=== PATIENT | female | born 1970 | race Caucasian/White ===

== ENCOUNTER 2024-06-23 14:17 | Emergency (ER) | payer BC, SELFPAY ==
--- NOTE | ~2024-06-23 | CT_ITS ---
EXAMINATION: CT ANGIOGRAM HEAD AND NECK CLINICAL INFORMATION: Right-sided weakness. 54-year-old female. COMPARISON: Noncontrast head CT performed concurrently. No prior CT angiogram. TECHNIQUE: CT angiogram head and neck with intravenous bolus administration 70 mL of Omnipaque 350. Helical imaging was performed in the axial plane from the aortic arch to the skull vertex. The data was processed at the arrt technologist's workstation for generation of MIP sequences. Angled MIPs and volume rendered reformatted images were also generated at an offline 3D workstation. Stenoses are assessed in accordance with NASCET criteria unless otherwise indicated. This CT examination was performed using dose optimization techniques as appropriate, variously including the following: *Automated exposure control *Adjustment of mA and/or kV according to patient size (this includes techniques or standardized protocols for targeted exams where dose is matched to indication/reason for exam; i.e. extremities or head) *Use of iterative reconstruction technique FINDINGS: NECK CTA: -AORTIC ARCH: Normal in caliber. Mild atheromatous calcification. Three-vessel branching pattern. -GREAT VESSEL ORIGINS: Widely patent. No stenosis. -RIGHT COMMON CAROTID ARTERY: Normal in course and caliber to the level of the bifurcation. -CERVICAL RIGHT INTERNAL CAROTID ARTERY: Normal opacification without focal stenosis or occlusion. -LEFT COMMON CAROTID ARTERY: Normal in course and caliber to the level of the bifurcation. -CERVICAL LEFT INTERNAL CAROTID ARTERY: Normal opacification without focal stenosis or occlusion. -CERVICAL RIGHT VERTEBRAL ARTERY: Codominant. Normal in course and caliber into the skull base. -CERVICAL LEFT VERTEBRAL ARTERY: Codominant. Normal in course and caliber into the skull base. OTHER, SOFT TISSUES: -No lymphadenopathy or mass. No abnormal fluid collection or soft tissue swelling. -Normal thyroid. -Imaged superior mediastinal structures normal. -Imaged lung apices demonstrate mosaic attenuation, likely hypoventilatory changes from expiration. No additional abnormality. CTA OF THE BRAIN: -INTRACRANIAL INTERNAL CAROTID ARTERIES: No focal stenosis or occlusion. -RIGHT ANTERIOR CEREBRAL ARTERY: Normal A1 segment.. Normal arborization of the distal segments. -LEFT ANTERIOR CEREBRAL ARTERY: Normal A1 segment.. Normal arborization of the distal segments. -ANTERIOR COMMUNICATING ARTERY: Normal. -RIGHT MIDDLE CEREBRAL ARTERY: Normal M1 segment of the MCA without focal stenosis or occlusion. Normal bifurcation. Normal arborization of the distal segments. -LEFT MIDDLE CEREBRAL ARTERY: Normal M1 segment of the MCA without focal stenosis or occlusion. Normal bifurcation. Normal arborization of the distal segments. -RIGHT VERTEBRAL ARTERY V4: Normal in course and caliber. -LEFT VERTEBRAL ARTERY V4: Normal in course and caliber. -BASILAR ARTERY: Normal without focal stenosis or occlusion. Normal appearance of the proximal superior cerebellar arteries. Normal basilar tip. -RIGHT POSTERIOR CEREBRAL ARTERY: Normal P1 segment. Normal opacification of the distal MECHANICAL ENGINEERING PROFESSOR segments. -LEFT POSTERIOR CEREBRAL ARTERY: Normal P1 segment. Normal opacification of the distal MECHANICAL ENGINEERING PROFESSOR segments. -POSTERIOR COMMUNICATING ARTERIES: Normal opacification of the superior sagittal, straight, transverse, and sigmoid sinuses. No venous thrombosis. No space-occupying hemorrhage or definite evolving infarct. CT/CT angio head neck STROKE IMPRESSION: CTA NECK: 1. No evidence of vascular stenosis, occlusion, dissection, or aneurysm. 2. Normal-appearing soft tissues. 3. Mosaic attenuation of the imaged lung apices, likely secondary to hypoventilatory/expiratory changes. CTA HEAD: 1. No evidence of major arterial vascular stenosis, occlusion, dissection, or aneurysm. 2. No regional oligemia identified. 3. Major cortical and dural venous sinuses are patent. 4. No evolving ischemic infarct or space-occupying hemorrhage identified. Electronically signed by: Otilio Cee MD 06/23/2024 02:55 PM EDT
--- NOTE | ~2024-06-23 | CT_ITS ---
EXAMINATION: CT HEAD WITHOUT CONTRAST (STROKE PROTOCOL) CLINICAL INFORMATION: Stroke protocol. Right-sided weakness. COMPARISON: None available. TECHNIQUE: Contiguous axial imaging was performed from the skull base to vertex without intravenous administration of contrast. This CT examination was performed using dose optimization techniques as appropriate, variously including the following: *Automated exposure control *Adjustment of mA and/or kV according to patient size (this includes techniques or standardized protocols for targeted exams where dose is matched to indication/reason for exam; i.e. extremities or head) *Use of iterative reconstruction technique FINDINGS: There is no evidence of intracranial hemorrhage or extra-axial fluid collection. There is no mass effect, or edema. No CT evidence of acute territorial infarct. Ventricles, sulci, and cisterns are normal in size and configuration for patient age. No hydrocephalus. No midline shift. Negative hyperdense MCA sign. Negative insular ribbon sign. No white matter abnormalities. Normal pituitary. Globes and orbital contents image normally. No extracranial soft tissue abnormalities. Small air-fluid levels in the sphenoid sinuses. The paranasal sinuses, mastoid air cells, and tympanic cavities are otherwise normally aerated. No suspicious bony abnormalities. There are no acute fractures evident. CT/CT head for STROKE IMPRESSION: 1. No acute intracranial abnormality. No evidence of acute territorial infarct or intracranial hemorrhage. 2. Small air-fluid levels in the sphenoid sinuses. Electronically signed by: Otilio Cee MD 06/23/2024 02:35 PM EDT
--- NOTE | 2024-06-23 14:21 | ECG_ITS ---
Test Reason : stroke alert Blood Pressure : */* mmHG Vent. Rate : 66 BPM Atrial Rate : 66 BPM P-R Int : 190 ms QRS Dur : 106 ms QT Int : 438 ms P-R-T Axes : 5 -32 4 degrees QTcB Int : 459 ms Normal sinus rhythm Left axis deviation Cannot rule out Anterior infarct , age undetermined Abnormal ECG No previous ECGs available Referred By: Annabel Mcclain Electronically Signed By: Ha Booth
--- NOTE | 2024-06-23 14:25 | ED_ITS ---
<Statement entered by Shaun Alejandro MD - 06/24/24 10:49> I saw this patient with the physician medical assistant secretary. At the time that I saw the patient she looked quite well. She had presented with an episode of right-sided numbness that did not seem to be associated with any weakness or speech difficulty. She is not hypertensive. She is 54 years old. She has a history of hypertension and hyperlipidemia. She has never been a smoker. No diabetes. Her episode of right-sided numbness was associated with nausea and vomiting. I would not typically associated nausea and vomiting with a TIA. The patient also presented with a normal blood pressure. I would typically expect a resolving TIA to be associated with a higher blood pressure. Her CT angiogram does not show significant vascular disease. Her EKG shows a sinus rhythm. My overall suspicion for TIA in his the patient is quite low. Her ABCD2 score is low. It is possible this might has been a migraine phenomenon. I think it would be reasonable to discharge the patient on aspirin and have her follow up with her primary care doctor for an outpatient workup. The patient seems amenable HPI - Neuro Symptoms/Deficit General Chief Complaint: Stroke Stated Complaint: STROKE ALERT: R SIDED WEAKNESS/NUMBNESS Time Seen by Provider: 06/23/24 14:22 Source: patient and EMS Mode of arrival: EMS Limitations: no limitations History of Present Illness ED Provider: ANNABEL MCCLAIN PA-C HPI Narrative: 54 year old female with pmhx significant for HTN and HLD presents to the ED today for evaluation of acute onset right facial numbness and right UE paresthesias. Reports that at approximately 1330 today while typing at her computer, she began to experience numbness along the right side of her face/ tongue which then began to spread to her right upper extremity. She reports standing up from her desk and ambulating over to the kitchen to grab some water. She was able to hold the water pitcher in her right hand. She did not feel as though her right upper extremity was weak. She was able to tolerate water. She then ambulated to her supervisors office to inform her that something was wrong. Her home restoration service supervisor then called EMS. Patient states that for the most part, symptoms had resolved on EMS arrival. She was still experiencing tingling to right finger tips and foot. FAST exam per EMS was 0. Prior to ED transport, she began to feel nauseous and had two episodes of vomiting. On arrival, patient reports mild tingling sensation to right fingertips and right foot. Denies any numbness/weakness. She denies history of CVA or TIA. Denies VTE history. Not on anticoagulation. Denies hx DM. Denies headache, dizziness, vision changes, fever, chills, chest pain, shortness of breath, constipation, diarrhea, abdominal pain. No recent travel or long car ride. No recent illness. Related Data Previous Rx's ?Medication ?Instructions ?Recorded aspirin 81 mg capsule 81 mg PO DAILY 30 days #30 caps 06/23/24 Allergies Allergy/AdvReac Type Severity Reaction Status Date / Time No Known Allergies Allergy Verified 06/23/24 14:40 Review of Systems 2 Review of Systems: Yes all other systems are reviewed and are negative [facility] Past Medical History Attestation statement: The following information was validated with the patient. Source: old records reviewed and nursing notes reviewed Social History Social History Alcohol intake: current Alcohol intake frequency: holidays/special occasions only Smoked in Last 30 Days: No Use of substances other than those prescribed or required for medical reasons: No Advance Directives: No Advance Directives Information Provided: No Do you have a plan to hurt others: No Plan Patient : No Physical Exam 2 Vital Signs: Vital Signs: Last Vital Signs Temp 97.9 F 06/23/24 16:26 Pulse 64 06/23/24 16:26 Resp 11 L 06/23/24 16:26 BP 133/83 06/23/24 16:26 Pulse Ox 99 06/23/24 16:26 O2 Del Method Room Air 06/23/24 16:26 BMI result Body Mass Index 35.6 General: well appearing, in NAD Skin: Warm, dry, intact. No rashes or lesions. Head: Normocephalic, atraumatic. EENT: Hearing is intact b/l. Conjunctiva clear. PERRLA. EOM intact. Moist mucous membranes.? Neck: Supple without LAD Cardiac: Chest wall symmetric. RRR Lungs: Normal respiratory effort without accessory muscle use. CTA bilaterally Abdomen: Soft, non-tender, non-distended. No rebound tenderness or guarding. Positive BS x4. Back: No midline spinous or paraspinal tenderness. No step off deformity. Ext: Upper and lower extremities atraumatic, without tenderness, deformity, swelling or erythema Neuro: AOx3. Normal speech. No facial droop, slurred speech or pronator drift. NIH 0 at 1420 on arrival. Strength 5/5 intact throughout. Sensation intact to light touch throughout. ambulating w/ steady gait. normal finger to nose, heel to [place]. Course Course Course Narrative: 1420 - patient reporting transient episode of right upper extremity paresthesias/numbness which began around 1330 today. nearly complete resolution of symptoms on arrival. Her NIH stroke scale is 0. Likely TIA however stroke protocol ordered for further assessment. 1533 -- cbc without leukocytosis or left shift. no anemia, h&h stable. chemistry without acute electrolyte abnormality requiring intervention. no wilson. glucose 118. trop undetectable. EKG showing normal sinus rhythm, rate of 66 beats per minute, no acute ischemic changes or ST elevations. CT head without acute intracranial abnormality. No acute territorial infarct or intracranial hemorrhage. Small air-fluid levels noted to sphenoid sinuses. CT angio head/neck without major arterial vascular stenosis, occlusion, dissection or aneurysm. > ABCD2 score for TIA = 0. > patient is well appearing. vitals have remained stable. normotensive. > at this time, unclear if patient had some degree of migraine like symptoms vs TIA. her blood pressure has remained normal. vomiting less likely associated with TIA/CVA. > my attending dr. alejandro has reviewed case and evaluated patient at bedside. given unremarkable work up, low ABCD2 score, and limited risk factors, we feel it is reasonable to discharge patient home on baby aspirin with outpatient follow up. Used shared decision making with patient, she is agreeable with this. Aspirin 81 mg sent to pharmacy. Advised close follow up with her primary care provider. She states she will be calling their office tomorrow. Patient has remained stable throughout ED visit today. Discussed worrisome signs and symptoms and when to return to the ED. All questions answered at this time. Patient is agreeable with disposition and stable for discharge. Medications Administered Discontinued Medications Generic Name Dose Route Start Last Admin Trade Name Freq PRN Reason Stop Dose Admin Iohexol 100 ml 06/23/24 14:38 06/23/24 14:38 Iohexol 350 Mg/Ml 100 Ml Infus..Btl IV 06/23/24 14:39 70 ml ONCE ONE Administration Ondansetron HCl 4 mg 06/23/24 14:59 06/23/24 15:15 Ondansetron Hcl 4 Mg/2 Ml Vial IVPUSH 06/23/24 15:00 4 mg ONCE ONE Administration Medical Decision Making Medical Decision Making [facility] Narrative: 54 year old female with pmhx significant for HTN and HLD presents to the ED today for evaluation of acute onset right facial numbness and right UE paresthesias. vital signs stable. She is well-appearing and in no acute distress. Initially noted to vomit on arrival to ED. exam nonfocal. NIH 0. Cerebellum intact. Ambulating with steady gait. Differential diagnosis includes anemia, electrolyte abnormality, hypoglycemia, arrhythmia, migraine, dehydration, TIA/CVA. Unlikely intracranial hemorrhage. Plan for stroke protocol, re-evaluation. Differential Diagnosis Differential Diagnoses: The differential diagnosis associated with the presentation includes as above. Admission/Observation Consideration of admission/observation: Escalation of care including admission/observation considered Not indicated Lab Data [facility] Lab Attestation statement: I reviewed the patient's lab results. as above. 06/23/24 14:30 06/23/24 14:30 Labs: Lab Results 06/23/24 06/23/24 06/23/24 Range/Units 14:28 14:29 14:30 WBC 8.6 (4.8-10.8) X10*3/uL RBC 4.57 (4.20-5.50) X10*6/uL Hgb 13.6 (12.0-16.0) g/dl Hct 40.0 (37.0-47.0) % MCV 87.5 (80.0-98.0) fL MCH 29.8 (27.0-33.0) pg MCHC 34.0 (31.0-35.0) g/dl RDW 13.0 (11.0-16.0) % Plt Count 323 (160-400) X10*3/uL MPV 9.9 (9.4-12.3) fL Immature Gran % (Auto) 0.3 (0.0-0.4) % Neut % (Auto) 50.6 (45-73) % Lymph % (Auto) 37.8 (20-40) % Door % (Auto) 8.2 (2-11) % Eos % (Auto) 2.4 (0-4) % Baso % (Auto) 0.7 (0-2) % Lymph # (Auto) 3.3 (1.2-4.9) X10*3/uL Door # (Auto) 0.7 (0.1-1.2) X10*3/uL Eos # (Auto) 0.2 (0.0-0.4) X10*3/uL Baso # (Auto) 0.1 (0.0-0.2) X10*3/uL Abs Immat Gran (auto) 0.03 (0.00-0.03) X10*3/uL Absolute Neuts (auto) 4.4 (2.0-8.3) x10*3/uL Absolute Nucleated RBC 0.000 (0.0-0.012) X10*3/uL Nucleated RBC % (auto) 0.0 (0.0-0.2) /100WBC Hold Purple Top SEE NOTE PT 11.7 (10.9-12.4) SEC Whole Blood PT 12.2 (11.1-13.5) sec INR 1.0 (0.9-1.1) Whole Blood INR 1.0 (0.9-1.1) APTT 30.8 (26.0-36.8) SEC Sodium 138 (135-145) mmol/L Potassium 3.9 (3.3-5.1) mmol/L Chloride 107 (96-108) mmol/L Carbon Dioxide 19 L (22-29) mmol/L Anion Gap 16 (12-20) BUN 15 (9-16) mg/dL Creatinine 0.81 (0.5-1.4) mg/dL Estim Creat Clear Calc 103.6 Estimated GFR > 60 POC Glucose 122 H (60-115) mg/dL Random Glucose 118 H (60-115) mg/dL Calcium 9.0 (8.4-10.2) mg/dL Troponin I High Sens < 2.7 (<3.5-17.0) ng/L Triglycerides 66 (<150) mg/dL Cholesterol 160 (<200) mg/dL LDL Cholesterol, Calc 85 (<100) mg/dL HDL Cholesterol 62 (>40) mg/dL Independent Interpretation I performed an independent interpretation of an: EKG and CT Scan Interpretation: ct head/brain without bleed or mass cta head/neck without obvious vessel occlusion EKG showing normal sinus rhythm, rate of 66 beats per minute, no acute ischemic changes or ST elevations Radiology Impression Discussion of test interpretation with radiology: I have reviewed the radiologist's reading. Radiologist Impression: Procedure(s): CT angio head neck STROKE Accession Number(s): [id number] cc: Annabel Mcclain~ Report Number: [id number]: Total DLP = 734.00 mGy-cm EXAMINATION: CT ANGIOGRAM HEAD AND NECK CLINICAL INFORMATION: Right-sided weakness. 54-year-old female. COMPARISON: Noncontrast head CT performed concurrently. No prior CT angiogram. TECHNIQUE: CT angiogram head and neck with intravenous bolus administration 70 mL of Omnipaque 350. Helical imaging was performed in the axial plane from the aortic arch to the skull vertex. The data was processed at the cytogenetics technologist's workstation for generation of MIP sequences. Angled MIPs and volume rendered reformatted images were also generated at an offline 3D workstation. Stenoses are assessed in accordance with NASCET criteria unless otherwise indicated. This CT examination was performed using dose optimization techniques as appropriate, variously including the following: *Automated exposure control *Adjustment of mA and/or kV according to patient size (this includes techniques or standardized protocols for targeted exams where dose is matched to indication/reason for exam; i.e. extremities or head) *Use of iterative reconstruction technique FINDINGS: NECK CTA: -AORTIC ARCH: Normal in caliber. Mild atheromatous calcification. Three-vessel branching pattern. -GREAT VESSEL ORIGINS: Widely patent. No stenosis. -RIGHT COMMON CAROTID ARTERY: Normal in course and caliber to the level of the bifurcation. -CERVICAL RIGHT INTERNAL CAROTID ARTERY: Normal opacification without focal stenosis or occlusion. -LEFT COMMON CAROTID ARTERY: Normal in course and caliber to the level of the bifurcation. -CERVICAL LEFT INTERNAL CAROTID ARTERY: Normal opacification without focal stenosis or occlusion. -CERVICAL RIGHT VERTEBRAL ARTERY: Codominant. Normal in course and caliber into the skull base. -CERVICAL LEFT VERTEBRAL ARTERY: Codominant. Normal in course and caliber into the skull base. OTHER, SOFT TISSUES: -No lymphadenopathy or mass. No abnormal fluid collection or soft tissue swelling. -Normal thyroid. -Imaged superior mediastinal structures normal. -Imaged lung apices demonstrate mosaic attenuation, likely hypoventilatory changes from expiration. No additional abnormality. CTA OF THE BRAIN: -INTRACRANIAL INTERNAL CAROTID ARTERIES: No focal stenosis or occlusion. -RIGHT ANTERIOR CEREBRAL ARTERY: Normal A1 segment.. Normal arborization of the distal segments. -LEFT ANTERIOR CEREBRAL ARTERY: Normal A1 segment.. Normal arborization of the distal segments. -ANTERIOR COMMUNICATING ARTERY: Normal. -RIGHT MIDDLE CEREBRAL ARTERY: Normal M1 segment of the MCA without focal stenosis or occlusion. Normal bifurcation. Normal arborization of the distal segments. -LEFT MIDDLE CEREBRAL ARTERY: Normal M1 segment of the MCA without focal stenosis or occlusion. Normal bifurcation. Normal arborization of the distal segments. -RIGHT VERTEBRAL ARTERY V4: Normal in course and caliber. -LEFT VERTEBRAL ARTERY V4: Normal in course and caliber. -BASILAR ARTERY: Normal without focal stenosis or occlusion. Normal appearance of the proximal superior cerebellar arteries. Normal basilar tip. -RIGHT POSTERIOR CEREBRAL ARTERY: Normal P1 segment. Normal opacification of the distal EMBEDDED SYSTEMS SOFTWARE DEVELOPER segments. -LEFT POSTERIOR CEREBRAL ARTERY: Normal P1 segment. Normal opacification of the distal EMBEDDED SYSTEMS SOFTWARE DEVELOPER segments. -POSTERIOR COMMUNICATING ARTERIES: Normal opacification of the superior sagittal, straight, transverse, and sigmoid sinuses. No venous thrombosis. No space-occupying hemorrhage or definite evolving infarct. CT/CT angio head neck STROKE IMPRESSION: CTA NECK: 1. No evidence of vascular stenosis, occlusion, dissection, or aneurysm. 2. Normal-appearing soft tissues. 3. Mosaic attenuation of the imaged lung apices, likely secondary to hypoventilatory/expiratory changes. CTA HEAD: 1. No evidence of major arterial vascular stenosis, occlusion, dissection, or aneurysm. 2. No regional oligemia identified. 3. Major cortical and dural venous sinuses are patent. 4. No evolving ischemic infarct or space-occupying hemorrhage identified. Electronically signed by: Otilio Cee MD 06/23/2024 02:55 PM EDT Procedure(s): CT head for STROKE Accession Number(s): [id number] cc: Annabel Mcclain~ Report Number: [id number]: Total DLP = 694.00 mGy-cm EXAMINATION: CT HEAD WITHOUT CONTRAST (STROKE PROTOCOL) CLINICAL INFORMATION: Stroke protocol. Right-sided weakness. COMPARISON: None available. TECHNIQUE: Contiguous axial imaging was performed from the skull base to vertex without intravenous administration of contrast. This CT examination was performed using dose optimization techniques as appropriate, variously including the following: *Automated exposure control *Adjustment of mA and/or kV according to patient size (this includes techniques or standardized protocols for targeted exams where dose is matched to indication/reason for exam; i.e. extremities or head) *Use of iterative reconstruction technique FINDINGS: There is no evidence of intracranial hemorrhage or extra-axial fluid collection. There is no mass effect, or edema. No CT evidence of acute territorial infarct. Ventricles, sulci, and cisterns are normal in size and configuration for patient age. No hydrocephalus. No midline shift. Negative hyperdense MCA sign. Negative insular ribbon sign. No white matter abnormalities. Normal pituitary. Globes and orbital contents image normally. No extracranial soft tissue abnormalities. Small air-fluid levels in the sphenoid sinuses. The paranasal sinuses, mastoid air cells, and tympanic cavities are otherwise normally aerated. No suspicious bony abnormalities. There are no acute fractures evident. CT/CT head for STROKE IMPRESSION: 1. No acute intracranial abnormality. No evidence of acute territorial infarct or intracranial hemorrhage. 2. Small air-fluid levels in the sphenoid sinuses. Independent Historian Clinical information obtained from an independent historian. History obtained from or confirmed by: EMS External Record Review External record reviewed: Inpatient record Prescription Management I considered prescription management with: Other (aspirin) Chronic Conditions Patient?s care impacted by: Hypertension Social Determinants Patient?s care significantly limited by Social Determinants of Health including: Other Social Determinant of Health Scores Additional Scores ABCD2 Score: Score: 0 NIH Stroke Scale Internal: Initial- Upon Arrival Time: 14:20 Level of Consciousness: Alert Level of Consciousness Questions: Answers both questions correctly Level of Consciousness Commands: Performs both tasks correctly Best Gaze: Normal Visual: No visual loss Facial Palsy: Normal Motor Arm (Right): No drift Motor Arm (Left): No drift Motor Leg (Right): No drift Motor Leg (Left): No drift Limb Ataxia: Absent Sensory: Normal Best Language: No aphasia Dysarthia: Normal Extinction and Inattention: No abnormality Score: 0 Critical Care Time Critical Care Time Critical Care Time: Yes Total Critical Care Time: 32 Attestation: Critical care time in the amount of 32 minutes has been provided to the patient in terms of direct patient care, frequent reevaluation, review and interpretation of medical data and results, and management of potentially life- threatening conditions. This is all outside of any medical procedures. Discharge Plan Discharge Clinical Impression: Paresthesias Patient Disposition: Home, Self-Care Instructions: Transient Ischemic Attack (ED), Paresthesia (ED) Additional Instructions: You were evaluated in the ED today after a brief episode of numbness and tingling to your face and your right arm. Your workup today is quite reassuring. Your blood work is normal. The EKG of your heart is normal. We obtained 2 different scans of your brain - one without contrast and one with contrast. Both scans are normal. There is no evidence of intracranial bleed or clot. It is possible that you experienced a transient ischemic attack (TIA). see home instructions. To prevent further episodes, I am starting you on a low dose aspirin daily (81 mg/ day). I also recommend prompt follow up with your primacy care provider this week. Please return to the ED for any new or worsening symptoms. In the case of an emergency call 911. Prescriptions: New aspirin 81 mg capsule 81 mg PO DAILY 30 Days Qty: 30 0RF Interventions: ED Discharge Assessment Last Done: 06/23/24 16:26 Discharge Date/Time: 06/23/24 17:02 Print Language: Syriac
[2024-06-23 14:29] VITALS: BP 130/84; PULSE 69; O2SAT 99
[2024-06-23 14:33] VITALS: BMI 35.6
[2024-06-23 14:36] LABS: Prothrombin Time Whole Bld POC 12.2 sec (11.1-13.5)
[2024-06-23 14:37] LABS: Glucose, Whole Blood 122 mg/dL (60-115)
[2024-06-23 14:37] LABS: MANUAL DIFF FLAG NO
[2024-06-23] MEDS: iohexoL 350 MG/ML 100 ML INFUS..BTL IV (14:38)
[2024-06-23 14:40] VITALS: BP 116/74; PULSE 61; RESP 12; TEMP 36.4; O2SAT 98; BMI 35.6
--- NOTE | 2024-06-23 14:44 | MHC.STROKE ---
Pt arrived to ED via EMS Pt awake, alert and oriented x 4. Answering questions appropriatley. Pt reports sudden onset of right sided weakness. States this happened at approx 1330. Pt states that while she feels better, she still has some tingling in her fingers and toes. Pt reports vomiting x 2. Stroke Education reviewed. Pamphlet provided. Risk factors discussed including medical history, medications, diet, activity, social history. LKWT 1330. Will continue to assist as needed.
[2024-06-23 14:45] LABS: Basophils Absolute Auto 0.1 X10*3/uL (0.0-0.2); Basophils Percent Auto 0.7 % (0-2); Eosinophils Absolute Auto 0.2 X10*3/uL (0.0-0.4); Eosinophils Percent Auto 2.4 % (0-4); Hemoglobin 13.6 g/dl (12.0-16.0); Imm Gran Abs Auto 0.03 X10*3/uL (0.00-0.03); Imm Gran Pct Auto 0.3 % (0.0-0.4); Lymphocytes Absolute Auto 3.3 X10*3/uL (1.2-4.9); Lymphocytes Percent Auto 37.8 % (20-40); Mean Corpuscular Hemoglobin 29.8 pg (27.0-33.0); Mean Corpuscular Volume 87.5 fL (80.0-98.0); Mean Platelet Volume 9.9 fL (9.4-12.3); Monocytes Absolute Auto 0.7 X10*3/uL (0.1-1.2); Monocytes Percent Auto 8.2 % (2-11); Neutrophils Absolute Auto 4.4 x10*3/uL (2.0-8.3); Neutrophils Percent Auto 50.6 % (45-73); Platelet Count 323 X10*3/uL (160-400); Red Blood Count 4.57 X10*6/uL (4.20-5.50); White Blood Count 8.6 X10*3/uL (4.8-10.8)
[2024-06-23 14:52] LABS: Prothrombin Time 11.7 SEC (10.9-12.4)
[2024-06-23 14:54] LABS: Partial Thromboplastin Time 30.8 SEC (26.0-36.8)
[2024-06-23 14:55] LABS: Anion Gap 16 (12-20); Blood Urea Nitrogen 15 mg/dL (9-16); Carbon Dioxide 19 mmol/L (22-29); Chloride 107 mmol/L (96-108); Cholesterol 160 mg/dL (<200); Creatinine Clr Calc Pharmacy 103.6; Estimated Glomerular Filt Rate > 60; Glucose Random 118 mg/dL (60-115); HDL Cholesterol 62 mg/dL (>40); LDL Cholesterol Calculated 85 mg/dL (<100); Potassium 3.9 mmol/L (3.3-5.1); Sodium 138 mmol/L (135-145); Triglycerides 66 mg/dL (<150)
[2024-06-23 14:57] LABS: Stroke Lab Use COMPLETE
[2024-06-23 15:03] LABS: Troponin-I High Sensitivity < 2.7 ng/L (<3.5-17.0)
[2024-06-23 15:14] VITALS: BP 133/83; PULSE 64; RESP 11; O2SAT 99
[2024-06-23] MEDS: ondansetron HCL 4 MG/2 ML VIAL IVPUSH (15:15)
[2024-06-23 16:26] VITALS: BP 133/83; PULSE 64; RESP 11; TEMP 36.6; O2SAT 99
== END 2024-06-23 17:02 | disposition home or self-care (01) ==
PROVIDERS: Physician Assistant Medical; Emergency Provider Emergency Medicine; PCP Internal Medicine
DX: R20.2 Paresthesia of skin (principal); R94.31 Abnormal electrocardiogram [ECG] [EKG]; R53.1 Weakness; I10 Essential (primary) hypertension; Z51.81 Encounter for therapeutic drug level monitoring; Z79.899 Other long term (current) drug therapy
CPT/HCPCS: 36415; 70450; 70496; 70498; 80048; 80061; 82947; 84484; 85025; 85610; 85730; 93005; 96374; 99285; J2405; Q9967

== ENCOUNTER → 2024-06-23 14:21 | Outpatient (BNV) | payer SELFPAY | PROVIDERS: Emergency Provider Emergency Medicine; Visit Provider Radiology Diagnostic Radiology | DX: G81.91 Hemiplegia, unspecified affecting right dominant side (principal) | CPT/HCPCS: 70450; 70496 ==

== ENCOUNTER → 2024-06-23 14:21 | Outpatient (BNV) | payer BC, SELFPAY | PROVIDERS: Emergency Provider Emergency Medicine; PCP Internal Medicine; Visit Provider Internal Medicine Cardiovascular Disease | DX: R94.31 Abnormal electrocardiogram [ECG] [EKG] (principal) | CPT/HCPCS: 93010 ==